=== PATIENT | female | born 1960 | race Caucasian/White ===

== ENCOUNTER 2016-12-23 22:11 | Emergency (ER) | payer SELFPAY ==
[~2016-12-23 22:11] MED LIST: EFFE150C PO; TRAZ100 PO
[2016-12-23 22:13] VITALS: BP 100/58; PULSE 90; RESP 16; TEMP 99.1; O2SAT 95
[2016-12-23] MEDS ORDERED: AMBI10TA PO (23:41)
[2016-12-23] MEDS ORDERED: DIAZ10TA PO (23:41)
[2016-12-23] MEDS ORDERED: VENL75TA PO (23:41)
[2016-12-23] MEDS ORDERED: NEXI40CA PO (23:41)
[2016-12-23] MEDS ORDERED: BETA10003 (23:41)
[2016-12-23] MEDS ORDERED: METF500T PO (23:41)
[2016-12-23] MEDS ORDERED: ENZYCAP (23:41)
[2016-12-23] MEDS ORDERED: FLUO1CRE TOPICAL (23:41)
[2016-12-23] MEDS ORDERED: LYRI75CA PO (23:41)
[2016-12-23] MEDS ORDERED: PANT40TA3 PO (23:41)
[2016-12-23] MEDS ORDERED: VITA-136 (23:41)
[2016-12-23] MEDS ORDERED: CALC1TAB16 PO (23:41)
[2016-12-24] MEDS ORDERED: RESP: ALBUTEROL 2.5 MG/IPRATROPIUM 0.5 MG NEB (SCH) NEB ONE
[2016-12-24] MEDS ORDERED: AZITHROMYCIN 250 MG TAB PO ONE
[2016-12-24] MEDS ORDERED: methylPREDNISolone SOD SUCC 125 MG/2 ML VIAL IV PUSH ONE
--- NOTE | 2016-12-24 00:21 | RADRPT ---
EXAM DATE/TIME: 12/24/2016 00:07 [place] COMPARISON: CHEST PA & LAT, November 03, 2010, 10:35. INDICATIONS : Cough. MEDICAL HISTORY : None. SURGICAL HISTORY : None. ENCOUNTER: Initial ACUITY: 1 day PAIN SCORE: 6/10 LOCATION: Bilateral chest FINDINGS: The lungs are clear without infiltrate, nodule, or mass. There is no appreciable pleural effusion fo r technique. Heart and mediastinum are unremarkable. CONCLUSION: No acute cardiopulmonary disease. Dianna Liu MD on December 24, 2016 at 0:19 Board Certified Radiologist. This report was verified electronically.
[2016-12-24] MEDS ORDERED: HYDR5SYP10 PO (00:24)
[2016-12-24] MEDS ORDERED: PRED-503 PO (00:24)
[2016-12-24] MEDS ORDERED: AZIT250T3 PO (00:24)
[2016-12-24] MEDS ORDERED: VENTAER INH (00:24)
--- NOTE | 2016-12-24 00:24 | PD ---
HPI Chief Complaint: Respiratory Symptoms Time Seen by Provider: 23:49 Travel History International Travel<30 days: No Contact w/Intl Traveler<30days: No Traveled to known affect area: No History of Present Illness HPI So 56 year-old woman presents to the emergency department complaining of 2 days of cough, subjective chills, shortness of breath, weakness. She is a history of anxiety diabetes and GERD. She denies a history of lung disease but uses an inhaler periodically for wheezing. No sick contacts. No other complaints. History Past Medical History Narrative Medical Anxiety Diabetes . Menopausal: Yes : 3 Para: 3 Social History Alcohol Use: No Tobacco Use: Yes (07/13 PPD ) Allergies-Medications (Allergen,Severity, Reaction): Coded Allergies: No Known Allergies (Verified , 12/23/16) Reported Meds & Prescriptions Reported Meds & Active Scripts Active Ventolin Hfa 18 GM Inh (Albuterol Sulfate) 90 Mcg/Act Aer 2 Puff INH Q4-6H PRN Hydrocodone-Homatropine Liq 5-1.5 Mg/5 Ml Syrp 5 Ml PO Q6H PRN Deltasone (Prednisone) 20 Mg Tab 60 Mg PO DAILY 5 Days Azithromycin 250 Mg Tab 250 Mg PO DAILY 4 Days Reported Vitamin E (Vitamin E Acetate) 400 Unit Capsule Beta Carotene (Beta-Carotene) 10,000 Unit Capsule 25,000 Enzyme Digest (Digestive Enzymes) 1 Cap Cap 1 Calcium Citrate-Vitamin D 315-200 Mg-Unit Tab 1 Tab PO DAILY Nexium (Esomeprazole DR) 40 Mg Capdr 40 Mg PO DAILY Fluoroplex Topical (Fluorouracil Topical) 1% Cream 1 Applic TOPICAL BID Ambien (Zolpidem Tartrate) 10 Mg Tab 12.5 Mg PO HS PRN Metformin (Metformin HCl) 500 Mg Tab 500 Mg PO DAILY With a meal Diazepam 10 Mg Tab 10 Mg PO QID PRN Pantoprazole (Pantoprazole Sodium) 40 Mg Tab 40 Mg PO DAILY Lyrica (Pregabalin) 75 Mg Cap 75 Mg PO BID Effexor (Venlafaxine HCl) 75 Mg Tab 150 Mg PO DAILY Review of Systems Except as stated in HPI: all other systems reviewed are Neg Physical Exam Narrative GENERAL: Well-appearing 56 year-old woman, no acute distress. Frequent cough. SKIN: Focused skin assessment warm/dry. HEAD: Atraumatic. Normocephalic. EYES: Pupils equal and round. No scleral icterus. No injection or drainage. ENT: No nasal bleeding or discharge. Mucous membranes pink and moist. NECK: Trachea midline. No JVD. CARDIOVASCULAR: Regular rate and rhythm. No murmur appreciated. RESPIRATORY: Coarse breath sounds with some wheezing in the anterior lung schwartz. GASTROINTESTINAL: Abdomen soft, non-tender, nondistended. Hepatic and splenic margins not palpable. MUSCULOSKELETAL: No obvious deformities. No edema. NEUROLOGICAL: Awake and alert. No obvious cranial nerve deficits. Motor grossly within normal limits. Normal speech. PSYCHIATRIC: Appropriate mood and affect; insight and judgment normal. Data Data Last Documented VS Vital Signs Date Time Temp Pulse Resp B/P Pulse Ox O2 Delivery O2 Flow Rate FiO2 12/23/16 23:30 18 98 Room Air 12/23/16 22:13 99.1 90 100/58 Orders Chest, Pa & Lat (12/23/16 ) Albuterol-Ipratropium Neb (Duoneb Neb) (12/24/16 00:00) Methylprednisolone So Succ Inj (Solumedr (12/24/16 00:00) Azithromycin (Zithromax) (12/24/16 00:00) MDM Medical Decision Making Medical Screen Exam Complete: Yes Emergency Medical Condition: Yes Interpretation(s) Chest x-ray: No acute disease. Differential Diagnosis Pneumonia, URI, COPD, other Narrative Course Medical decision making INITIAL: Is a 56 year-old woman presents to the emergency department complaining of cough cold symptoms and weakness. She looks well. She has some wheezing on her anterior lung schwartz. She's had wheezing in the past. We'll treat for reactive airway disease or bronchodilators, steroids, antibiotics, we' ll check x-ray for pneumonia. Outpatient follow-up. Diagnosis Primary Impression: Acute bronchitis Additional Instructions: Take azithromycin as prescribed. Use albuterol inhaler every 4 hours until symptoms resolve. Take prednisone as prescribed. Use Hycodan syrup as needed for cough. Use caution as this can cause drowsiness. Do not take this medication while driving. Return to the emergency department for any worsening breathing, chest pain, or any other new or worsening symptoms. Med/Other Pt SpecificInfo: Prescription(s) given Scripts Albuterol 18 GM Inh (Ventolin Hfa 18 GM Inh)90 Mcg/Act Aer2 Puff INH Q4-6H PRN ( SHORTNESS OF BREATH) #1 INHALER Prov:Bharat Epstein MD 12/24/16 Hydrocodone-Homatropine Liq 5-1.5 Mg/5 Ml Syrp5 Ml PO Q6H PRN (COUGH) #120 ML Prov:Bharat Epstein MD 12/24/16 Prednisone (Deltasone)20 Mg Tab60 Mg PO DAILY 5 Days Prov:Bharat Epstein MD 12/24/16 Azithromycin 250 Mg [id number] Mg PO DAILY 4 Days Prov:Bharat Epstein MD 12/24/16 Disposition: 01 DISCHARGE HOME Condition: Stable Bharat Epstein MD Dec 24, 2016 00:24
[2016-12-24] MEDS ORDERED: HYDROcodone 5 MG/HOMATROPINE 1.5 MG SYRUP 5 ML CUP PO ONE (01:15)
== END 2016-12-24 01:44 | disposition home or self-care (01) ==
LOC: NEPE 22:11
DX: J20.9 Acute bronchitis, unspecified (principal); F17.210 Nicotine dependence, cigarettes, uncomplicated
CPT/HCPCS: 71020; 94664; 96374; 99284; J2930